=== PATIENT | female | born 1955 | race Caucasian/White ===

== ENCOUNTER 2018-04-18 18:03 | Emergency (ER) | payer BC ==
[~2018-04-18 18:03] MED LIST: TETRACAINE HCL 0.5% OPHTH SOL 1 DROP ONE
[2018-04-18] MEDS ORDERED: OPHTHALMIC SALT SOLUTION 120 ML BTTL ONE (18:19)
[2018-04-18 18:20] VITALS: BP 147/92; TEMP 98; O2SAT 94
--- NOTE | 2018-04-18 18:29 | ED.PDOC ---
History of Present Illness - General Chief Complaint: Eye Problems Stated Complaint: Foreign object to eye Time Seen by Provider: 04/18/18 18:26 Source: patient Exam Limitations: no limitations - History of Present Illness Timing/Duration: this afternoon Severity: moderate EENT Location: eye (L) Improving Factors: other - avoiding blinking Worsening Factors: other - blinking Associated Symptoms: denies symptoms Allergies/Adverse Reactions: Allergies NO KNOWN ALLERGY Allergy (Verified 04/18/18 18:18) Home Medications: Ambulatory Orders Bitpiyrc-Ntabtyyqo-Xs [Cortisporin Ophth] 7.5 ml OPHTH Q4HR #1 bttl 04/18/18 Review of Systems - Review of Systems Constitutional: Denies: chills, fever EENTM: States: eye pain - pain with blinking, no photophobia, blurred vision, tearing. Denies: double vision, nose congestion Respiratory: States: no symptoms reported Past Medical History (General) - Patient Medical History Hx Asthma: No Hx of COPD: No Surgical History: Hysterectomy - Vaccination History Hx Influenza Vaccination: No - Social History Hx Alcohol Use: Yes - socially Family Medical History - Family History Mother Family History: Unknown Physical Exam - Physical Exam General Appearance: Alert, Anxious, Obvious distress Eye Exam: right normal, left other - 1+ injection, tearing, no fb's found, no fluorescien available Departure - Departure Clinical Impression: Corneal abrasion Qualifiers: Encounter type: initial encounter Laterality: left Qualified Code(s): S05.02XA - Injury of conjunctiva and corneal abrasion without foreign body, left eye, initial encounter Clinical Impression: (Ruled Out): Conjunctivitis Disposition: Discharge to Home or Self Care Departure Forms: ED Discharge - Pt. Copy, Patient Portal Self Enrollment Referrals: Seymour Bernardo MD [Primary Care Provider] - 1-2 Weeks Prescriptions: Vdazuebl-Nzbzithdt-Cc [Cortisporin Ophth] 7.5 ml OPHTH Q4HR #1 bttl Home Medications: Ambulatory Orders Rstlnomo-Ljwfdokon-Sp [Cortisporin Ophth] 7.5 ml OPHTH Q4HR #1 bttl 04/18/18
[2018-04-18] MEDS ORDERED: BACITRACIN ONE (18:40)
[2018-04-18] MEDS ORDERED: HYDROCORTISONE ONE (18:40)
[2018-04-18] MEDS ORDERED: POLYMYXIN B ONE (18:40)
[2018-04-18] MEDS ORDERED: NEOMYCIN ONE (18:40)
== END 2018-04-18 18:46 | disposition home or self-care (01) ==
LOC: ER 18:03
DX: S05.02XA Injury of conjunctiva and corneal abrasion without foreign body, left eye, initial encounter (principal); X58.XXXA Exposure to other specified factors, initial encounter; Y92.9 Unspecified place or not applicable

== ENCOUNTER → 2020-10-16 | Outpatient (CLI) | payer MEDICARE, OTHER | LOC: GMAL 11:32 | PROVIDERS: ATTEND Family Medicine | DX: D51.8 Other vitamin B12 deficiency anemias (principal); E55.9 Vitamin D deficiency, unspecified; Z79.899 Other long term (current) drug therapy; R53.83 Other fatigue ==